=== PATIENT | female | born 1960 | race Caucasian/White ===

== ENCOUNTER 2019-04-05 10:56 | Outpatient (CLI) | payer OTHER, SELFPAY ==
--- NOTE | 2019-04-05 11:02 | MR_ITS ---
WS: [id number] MRI LUMBAR SPINE NONCONTRAST TECHNIQUE: Sagittal T1, T2 and STIR imaging. Axial T1 and T2 imaging. CLINICAL INFORMATION: RADICULAR PAIN;DEGENERATION LUMBAR/LUMBOSACRAL INTERVERTEBRA COMPARISON: MRI FINDINGS: Mild lumbar curve. No acute compression. Prior postoperative changes L5-S1. L1-L2: Normal. L2-L3: Mild annular bulging. Mild facet arthropathy. Spinal canal and foramen are patent. L3-L4: Mild annular bulging. Slight narrowing of the left subarticular recess. Mild facet arthropathy . Spinal canal is patent. L4-L5: Mild annular bulging eccentric to the left with slight impingement on the left subarticular re cess and traversing left L5 nerve root. Mild left proximal foraminal narrowing. Right foramen is martínez nt. Moderate facet arthropathy. L5-S1: Remote appearing right hemilaminectomy defect. Right pericentral subarticular disc protrusion impinges the traversing right S1 nerve root in the subarticular recess. Recommend correlation for rig ht S1 nerve root symptoms. Mild right proximal foraminal narrowing. Left foramen is patent. Previousl y described disc extrusion seen in 2012 has been resected. MR/MR lumbar spine wo con* [id number] IMPRESSION: 1. Right subarticular disc protrusion L5-S1 impinges the right S1 nerve root a nd subarticular recess. Recommend correlation for S1 nerve root symptoms. Mild right L5-S1 foraminal narrowing. This appears progressed since 2011. 2. Shallow left foraminal protrusion L4-5 impinges the left subarticular reces s and traversing left L5 nerve root. Mild left L4-5 foraminal narrowing. This i s new since 2011. 3. Moderate facet arthropathy L3-L4 and L4-L5.
== END 2019-04-05 10:57 | disposition home or self-care (01) ==
LOC: RADSHAW 11:00
PROVIDERS: Family Provider Family Medicine; Visit Provider Family Medicine
DX: M47.897 Other spondylosis, lumbosacral region (principal); M51.27 Other intervertebral disc displacement, lumbosacral region; M51.26 Other intervertebral disc displacement, lumbar region
CPT/HCPCS: 72148

== ENCOUNTER 2019-06-07 07:49 | Outpatient (CLI) | payer OTHER, SELFPAY ==
--- NOTE | 2019-06-07 08:04 | MR_ITS ---
WS: [id number] MRI LUMBAR SPINE WITH AND WITHOUT CONTRAST HISTORY: Low back pain. S/P lumbar decompression COMPARISON: 04/05/2019 TECHNIQUE: Sagittal and axial multisequence imaging is submitted. Sagittal and axial T1 fat sat seque nces post-ProHance 13 cc IV. Normal posterior lumbar alignment with slight curvature to the LEFT. No marrow edema or fracture. Mild disc desiccation and narrowing at L5-S1. No cord compression. Conus terminates normally at L1-2 disc level. L1-L2: Normal. L2-L3: Minimal annular disc bulging and facet arthropathy. No stenosis or change. L3-L4: Minimal annular disc bulging and facet arthropathy with no change. L4-L5: Mild eccentric annular disc bulging. Disc extends into the LEFT subarticular recess and LEFT f oramen. Focal broad-based protrusion with encroachment and displacement of the LEFT L5 nerve root at the subarticular recess. Similar to the prior examination. Mild narrowing of the LEFT foramen. There is fluid in the facet joints bilaterally. L5-S1: Again noted is the RIGHT subarticular recess disc protrusion displacing and abutting the RIGHT S1 nerve root. Disc protrusion extends into the proximal RIGHT foramen with an annular fissure. The disc protrusion has decreased in size. There is some peripheral enhancement but there is also a porti on that is nonenhancing consistent with with recurrent disc protrusion. Significantly smaller as comp ared to 04/05/2019. Prior RIGHT L5 hemilaminectomy defect. There is increased enhancement surrounding the facet facet lily nts on the RIGHT at L4-5 and L5-S1. MR/MR lumbar spine wo/w con [id number] IMPRESSION: 1. Recently described RIGHT subarticular disc protrusion L5-S1 has significant ly decreased in size but there is still encroachment and displacement of the RI GHT S1 nerve root. Soft tissue in the RIGHT subarticular recess and distended w ith postoperative fibrosis and recurrent disc protrusion. 2. Acute inflammatory facet joint arthropathy on the RIGHT at L4-5 and L5-S1. 3. Broad-based disc protrusion at L4-5 encroaching and displacing the LEFT L5 nerve root and narrowing the LEFT foramen. No interval change.
[2019-06-07 08:58] LABS: Blood Urea Nitrogen 18 mg/dL (6-20); Glomerular Filtration Rate 64.5 mL/min (90-130)
== END 2019-06-07 07:50 | disposition home or self-care (01) ==
LOC: RADWPI 07:54
PROVIDERS: Family Provider Family Medicine; PCP Family Medicine; Visit Provider Licensed Practical Nurse
DX: M51.17 Intervertebral disc disorders with radiculopathy, lumbosacral region (principal); M51.26 Other intervertebral disc displacement, lumbar region
CPT/HCPCS: 72158; 82565; 84520; A9579

== ENCOUNTER 2019-07-09 11:08 | Outpatient (CLI) | payer OTHER, SELFPAY ==
--- NOTE | 2019-07-09 11:15 | XR_ITS ---
WS: [id number] LUMBAR SPINE FLEXION AND EXTENSION TECHNIQUE: 3 views of the lumbar spine: Lateral neutral, flexion, and extension views. CLINICAL INFORMATION: Low back pain. COMPARISON: None. FINDINGS: Mild lumbar curve. No acute compression fractures. Normal alignment on the neutral view. No instabili ty on flexion-extension. Aortic calcification. Mild to moderate facet arthropathy L5-S1. XR/XR lumbar spine f/e only [id number] IMPRESSION: No instability on flexion-extension.
== END 2019-07-09 11:09 | disposition home or self-care (01) ==
LOC: RADWPI 11:11
PROVIDERS: Family Provider Family Medicine; PCP Family Medicine; Visit Provider Licensed Practical Nurse
DX: M54.5 Low back pain (principal)
CPT/HCPCS: 72120

== ENCOUNTER → 2019-08-30 08:33 | Outpatient (BNVA) | payer OTHER, SELFPAY | PROVIDERS: Family Provider Family Medicine; PCP Family Medicine; Referring Provider Specialist; Visit Provider Anesthesiology Pain Medicine | DX: G89.29 Other chronic pain (principal); M51.16 Intervertebral disc disorders with radiculopathy, lumbar region; M51.17 Intervertebral disc disorders with radiculopathy, lumbosacral region; M54.9 Dorsalgia, unspecified; Z98.890 Other specified postprocedural states; Z79.891 Long term (current) use of opiate analgesic | CPT/HCPCS: 99204; 99205 ==

== ENCOUNTER → 2019-09-17 10:30 | Outpatient (BNVA) | payer OTHER, SELFPAY | PROVIDERS: Family Provider Family Medicine; PCP Family Medicine; Visit Provider Nurse Practitioner Family | DX: U07.1 COVID-19 (principal) | CPT/HCPCS: 87635 ==

== ENCOUNTER → 2019-10-03 13:37 | Outpatient (BNVA) | payer OTHER, SELFPAY | PROVIDERS: Family Provider Family Medicine; PCP Family Medicine; Visit Provider Anesthesiology Pain Medicine | DX: M51.17 Intervertebral disc disorders with radiculopathy, lumbosacral region (principal); M51.16 Intervertebral disc disorders with radiculopathy, lumbar region; M54.9 Dorsalgia, unspecified; Z98.890 Other specified postprocedural states | CPT/HCPCS: 64483; 64484; J1040; J3490 ==

== ENCOUNTER → 2020-01-20 10:16 | Outpatient (BNVA) | payer OTHER, SELFPAY | PROVIDERS: PCP Family Medicine; Visit Provider Internal Medicine Cardiovascular Disease | DX: Z11.59 Encounter for screening for other viral diseases (principal) | CPT/HCPCS: 87635 ==

== ENCOUNTER 2020-01-24 07:53 | Outpatient (CLI) | payer OTHER, SELFPAY ==
[2020-01-24 08:09] VITALS: BMI 25.2
--- NOTE | 2020-01-24 08:09 | ECG_ITS ---
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 The perfusion scan will be documented separately. DATA: Baseline heart rate was 59 beats per minute. Baseline blood pressure was 151/91 millimeters of mercury. Target heart rate was 162. Maximum heart rate achieved was 100. which was 61 % of the predicted target heart rate. Maximum blood pressure was 151/91 millimeters of mercury. The reason for ending the test was completion of the protocol. The patient did not experience any symptoms. ELECTROCARDIOGRAM: BASELINE: Sinus rhythm. Normal axis. Otherwise, no ST-T changes suggestive of ischemia noted. No arrhythmia noted. After Lexiscan injection, no ST-T changes suggestive of ischemic noted. No arrhythmia noted. 1. EKG not suggestive of ischemia 2. Lexiscan injection unremarkable. 3. Perfusion scan will be documented separately. Electronically Signed On 01-25-2020 18:14:50 CDT by JJ KILLIAN [email or web address]/store/[id number]
--- NOTE | 2020-01-24 08:10 | NMCV_ITS ---
NM lesli perf SPECT r/s* [id number] Deepa Anaya Age: 59 Gender: F : 1960 Exam Date: 01/24/2020 09:41 Ordering Phys: Jj Killian MD ([email or web address]) Technologist: KELLIE Rock Exam Location: [facility] Indications: SHORTNESS OF BREATH STRESS TEST [facility] IMAGE PROTOCOL Rest/Stress 1 Lexiscan Day Radiopharmaceutical Dose (mCi) Administration Site Administered by Rest: Tc-99m 10.7 IV KELLIE Yung Sestamibi Stress:Tc-99m 32.4 IV KELLIE Yung Sestamibi Rest: 24-Jan-2020 60 Discovery 630 Stress: 24-Jan-2020 30 Discovery 630 0.4mg Lexiscan. Images obtained in supine and prone position. SPECT RESULTS Technical Quality: Excellent Raw Data Analysis: Normal Image Corrections: No attenuation or motion correction applied Summed Stress Score: 0 Summed Rest Score: 5 Summed Difference Score: 0 PERFUSION FINDINGS Medium-sized area of patchy decreased tracer uptake noted in mid to distal inferior mid anterior and septal wall on rest images which improved significantly over stress images suggestive of artifact. FUNCTIONAL RESULTS (calculated via Gated SPECT) Stress Image LV EF (%): 71 Stress EDV (mL):68 TID: 1.06 Stress ESV (mL):20 Rest Image LV EF (%): 71 FUNCTIONAL FINDINGS: There is normal left ventricular systolic function. IMPRESSIONS This study is negative for ischemia and low probability for obstructive coronary artery disease. EKG segment will be documented separately. Jj Killian MD (Electronically Signed) Final Date: 24 January 2020 16:28 S
--- NOTE | 2020-01-24 09:30 | USCV_ITS ---
Deepa Anaya Age: 59 Gender: F : 1960 Exam Date: 01/24/2020 08:17 Ordering Phys: Jj Killian MD ([email or web address]) Technologist: Yessenia Kidd Exam [place] [facility] Indication: SOB BP: 120 / 60 HR: 63 Rhythm: Sinus Technical Quality: Adequate MEASUREMENTS (Male / Female) Normal Values 2D ECHO LV Diastolic Diameter PLAX 4.2 cm 4.2 - 5.9 / 3.9 - 5.3 cm LV Systolic Diameter PLAX 2.9 cm LV Chamber Size 3.6 cm IVS Diastolic Thickness 0.9 cm 0.6 - 1.0 / 0.6 - 0.9 cm IVS Systolic Thickness 1.0 cm LVPW Diastolic Thickness 0.8 cm 0.6 - 1.0 / 0.6 - 0.9 cm LVPW Systolic Thickness 1.1 cm RV Chamber Size 2.6 cm LVOT Diameter 2.1 cm LV Ejection Fraction 2D Teich 58.4 % LV Ejection Fraction MOD 2C 66.5 % LV Ejection Fraction 2C AL 67.2 % LA Diameter 2.0 cm LA Width 2.4 cm LA Height 2.6 cm RA Width 2.5 cm RA Height 2.6 cm Aorta at Sinotubular Diameter 2.7 cm M-MODE LV Diastolic Diameter MM 4.0 cm 4.2 - 5.9 / 3.9 - 5.3 cm LV Systolic Diameter MM 3.1 cm LV Ejection Fraction MM Teich 47.8 % IVS Diastolic Thickness MM 0.8 cm 0.6 - 1.0 / 0.6 - 0.9 cm IVS Systolic Thickness MM 1.1 cm LVPW Diastolic Thickness MM 1.0 cm 0.6 - 1.0 / 0.6 - 0.9 cm LVPW Systolic Thickness MM 1.4 cm RV Diastolic Diameter MM 0.8 cm MV E Point Septal Separation 0.8 cm DOPPLER AV Peak Velocity 108.0 cm/s LVOT Peak Velocity 77.0 cm/s AV Area Cont Eq vti 2.0 cm squared AV Area Cont Eq pk 2.4 cm squared MV Area PHT 3.6 cm squared Mitral E to A Ratio 1.3 MV E' Velocity 38.0 cm/s Mitral E to MV E' Ratio 5.6 Mitral E to LV E' Lateral Ratio 5.3 Mitral E to LV E' Septal Ratio 6.0 TR Peak Velocity 208.6 cm/s TR Peak Gradient 17.4 mmHg TR Mean Velocity 166.2 cm/s TR Mean Gradient 12.0 mmHg TR Velocity Time Integral 66.3 cm TV Peak E Velocity 54.0 cm/s Right Atrial Pressure 3.0 mmHg Pulmonary Artery Systolic Pressu 20.4 mmHg PV Peak Velocity 44.0 cm/s RV Acceleration Time 0.1 s RV Ejection Time 0.3 s RV AcT/ET 0.3 FINDINGS Left Ventricle Normal left ventricular cavity size. Normal left ventricular systolic function. No regional wall motion abnormalities. Left ventricular ejection fraction is estimated at 60 %. Grade II/IV diastolic dysfunction, moderately elevated filling pressures. Right Ventricle The right ventricle is normal in size and function. Right Atrium The right atrium is normal in size. Left Atrium The left atrium is normal in size. Mitral Valve Structurally normal mitral valve without significant stenosis or prolapse. There is no mitral regurgitation. Aortic Valve Moderate aortic valve calcification. No aortic valve stenosis. No aortic valve regurgitation. Tricuspid Valve Structurally normal tricuspid valve without significant stenosis or regurgitation. Pulmonary artery systolic pressure is normal. Pulmonic Valve Structurally normal pulmonic valve without significant stenosis. There is no pulmonic regurgitation. Pericardium Normal pericardium without effusion. Aorta Normal ascending aorta dimension. CONCLUSIONS 1-Normal left ventricular cavity size. Normal left ventricular systolic function. No regional wall motion abnormalities. Left ventricular ejection fraction is estimated at 60 %. Grade II/IV diastolic dysfunction, moderately elevated filling pressures. 2-There is no pericardial effusion. 3-No significant valve abnormalities. 4-Pulmonary artery systolic pressure is within normal limits. 5-Right atrial pressure is around 5 mm of mercury. 6-No significant change since the prior echocardiogram study of 02/20/2013. Jj Killian MD (Electronically Signed) Final Date: 24 January 2020 18:58 S
[2020-01-24] MEDS: regadenoson 0.4 Mg/5 ml Syringe IVP (11:14)
--- NOTE | 2020-01-24 11:14 | SUR.PREOP ---
Patient reports no pain or discomfort prior to the start of the procedure.
[2020-01-24 11:47] VITALS: BP 148/91; PULSE 91
== END 2020-01-24 07:54 | disposition home or self-care (01) ==
LOC: RAD 07:57 → CARD 08:05 → CDL 08:08
PROVIDERS: PCP Family Medicine; Visit Provider Internal Medicine Cardiovascular Disease
DX: R06.02 Shortness of breath (principal); R07.9 Chest pain, unspecified
CPT/HCPCS: 78452; 93017; 93306; A9500; J2785

== ENCOUNTER → 2020-06-05 08:44 | Outpatient (BNVA) | payer OTHER, SELFPAY | PROVIDERS: PCP Family Medicine; Visit Provider Internal Medicine Pulmonary Disease | DX: R06.02 Shortness of breath (principal) | CPT/HCPCS: 87635 ==

== ENCOUNTER 2020-06-10 07:46 | Outpatient (CLI) | payer OTHER, SELFPAY ==
--- NOTE | 2020-06-10 07:55 | CT_ITS ---
WS: [id number] LDCT LUNG CANCER SCREENING TECHNIQUE: Noncontrast CT of the chest with coronal and sagittal reformatted images. CLINICAL INFORMATION: HX OF TOBACCO USE COMPARISON: None. DLP: 60.92 mGy.cm DIvol: 1.[address] scans at [facility] use at least one of these dose optimization techniques: automat ed exposure control; mA and/or kV adjustment per patient size (includes targeted exams where dose is matched to clinical indication); or iterative reconstruction. FINDINGS: Moderate chronic emphysematous changes. No acute pulmonary infiltrates. Fibrosis in the lung apices. Aortic calcification. Coronary calcification. No mediastinal or hilar lymphadenopathy. No axillary ly mphadenopathy. Fibrosis in the lung bases. No suspicious pulmonary parenchymal opacities. CT/CT lung screening [id number] IMPRESSION: LUNG-RADS: 2-Benign Appearance or Behavior FOLLOW UP: 12 Month: Continue annual screening with LDCT
== END 2020-06-10 07:47 | disposition home or self-care (01) ==
LOC: CT 07:47
PROVIDERS: PCP Family Medicine; Visit Provider Internal Medicine Critical Care Medicine
DX: Z12.2 Encounter for screening for malignant neoplasm of respiratory organs (principal); Z87.891 Personal history of nicotine dependence
CPT/HCPCS: 71271

== ENCOUNTER → 2020-06-14 10:27 | Outpatient (BNVA) | payer OTHER, SELFPAY | PROVIDERS: PCP Family Medicine; Visit Provider Internal Medicine Critical Care Medicine | DX: Z01.812 Encounter for preprocedural laboratory examination (principal); Z20.828 Contact with and (suspected) exposure to other viral communicable diseases | CPT/HCPCS: 87635 ==

== ENCOUNTER 2020-06-17 07:22 | Outpatient (CLI) | payer OTHER, SELFPAY ==
--- NOTE | 2020-06-17 13:08 | PFTS_ITS ---
Date of Study:06/17/20 Date of Dictation: MECHANICS: Forced vital capacity (FVC) is normal. Forced expiratory volume in one second (FEV1) is normal. FEV1/FVC is reduced. FLOW VOLUME LOOP: Reduced flow at all lung volumes with scooping. LUNG VOLUMES: Total lung capacity (TLC) is normal. Residual volume (RV) is increased. DIFFUSING CAPACITY FOR CARBON MONOXIDE: Normal. INTERPRETATION: The prebronchodilator spirometry is consistent with mild obstruction. Lung volumes are consistent with air trapping. Gas exchange (DLCO) is normal. MTDD
== END 2020-06-17 07:23 | disposition home or self-care (01) ==
LOC: RT 07:24
PROVIDERS: PCP Family Medicine; Visit Provider Internal Medicine Critical Care Medicine
DX: J44.9 Chronic obstructive pulmonary disease, unspecified (principal)
CPT/HCPCS: 94010; 94726; 94729

== ENCOUNTER 2022-01-29 07:35 | Outpatient (CLI) | payer OTHER, SELFPAY ==
--- NOTE | 2022-01-29 07:42 | MM_ITS ---
WS: [id number] VIEWS: MLO and CC views both breasts. 3D digital tomosynthesis is also included in this exam. Comparison made with prior exam of 11/01/2006, 08/02/2008,. Findings: There was no sign of mass, architectural distortion or suspicious calcification in either breast. He terogeneously dense MM/[place] [id number] Impression: BI-RADS: 2-Benign FOLLOW-UP: 1 Year Follow-up This mammogram was also analyzed by the Computer Aided Detection System R2 Imag e Networking Specialist.
== END 2022-01-29 07:36 | disposition home or self-care (01) ==
LOC: RAD 07:36
PROVIDERS: PCP Family Medicine; Visit Provider Family Medicine
DX: Z12.31 Encounter for screening mammogram for malignant neoplasm of breast (principal)
CPT/HCPCS: 77063; 77067

== ENCOUNTER 2023-08-04 07:56 | Outpatient (CLI) | payer OTHER, SELFPAY ==
--- NOTE | 2023-08-04 | ECG_ITS ---
[facility] Test Date: 2023-08-04 Pat Name: Deepa Anaya Department: Room: Gender: Female [place] Former: Elena Arrieta : 1960 Requested By: Parth Hawk Order Number: [id number] Kiara MD: Nirav Yo M.D. Interpretive Statements NAME OF STUDY: LEXISCAN SESTAMIBI STRESS TEST INDICATION: Chest Pain, CAD, PROCEDURE: At the baseline, the EKG revealed normal sinus rhythm with a features of possible old anteroseptal [place]. The baseline heart was 72 bpm with a blood pressue of 156/88 mm of Hg Lexiscan was infused over a period of 20 seconds. A total of 0.4 milligrams of Lexiscan was infused. The stress phase was continued for a total of 5 minutes. Heart rate at the end of the stress phase was 95 bpm with a blood pressure 159/90 mm of Hg. The EKG at the peak infusion revealed no significant changes. Sestamibi was injected 20 seconds after the Lexiscan infusion. Heart rate at the end of the recovery phase was 73 bpm with a blood pressure of 151/86 mm of Hg. CONCLUSION: 1. No significant EKG changes with the LexiScan infusion 2. No LexiScan induced chest pain or cardiac arrhythmia 3. Normal blood pressure and heart rate response 4. Sestamibi/sestamibi perfusion scan pending; see separate report. Electronically Signed On 08-06-2023 18:24:46 CDT by Nirav Yo M.D. [email or web address].[email or web address]/store/[id number]
[2023-08-04 08:24] VITALS: BMI 27.4
--- NOTE | 2023-08-04 08:55 | NMCV_ITS ---
NM lesli perf SPECT r/s* [id number] Deepa Anaya Age: 63 Gender: F : 1960 Exam Date: 08/04/2023 08:54 Ordering Phys: Parth Hawk MD ([email or web address]) Technologist: KELLIE Rock Exam Location: [facility] Indications: CORONARY ANGIOPLASTY STATUS STRESS TEST Please see separate stress test report in [facility] for full findings IMAGE PROTOCOL Rest/Stress 1 Radiopharmaceutical Dose (mCi) Administration Site Administered by Rest: Tc-99m 10.8 IV KELLIE Yung Sestamibi Stress:Tc-99m 32.5 IV KELLIE Yung Sestamibi Rest: 04-Aug-2023 60 Discovery 630 Stress: 04-Aug-2023 30 Discovery 630 Images obtained in supine and prone position. Images obtained in supine and prone position. SPECT RESULTS Technical Quality: Excellent Raw Data Analysis: Normal Image Corrections: No attenuation or motion correction applied Summed Stress Score: 3 Summed Rest Score: 1 Summed Difference Score: 2 PERFUSION FINDINGS Small area of minimal to moderately decreased tracer uptake in the mid and apical inferior wall region. Significant reversibility was noted with the supine imaging. However with the prone imaging, no severe reversibility was noted. FUNCTIONAL RESULTS (calculated via Gated SPECT) Stress Image LV EF (%): 69 Stress EDV (mL):64 TID: 1.05 Stress ESV (mL):20 FUNCTIONAL FINDINGS: Segmental wall motion analysis revealing no gross wall motion abnormalities IMPRESSIONS 1. Myocardial perfusion imaging revealing small area of minimal to moderately decreased tracer uptake in the mid and apical inferior wall region with subtle area reversibility suggesting myocardial scarring with ischemia. However in view of the inconsistency with the prone imaging, the reliability of this finding is questionable. 2. Normal LV ejection fraction of 69%. 3. LV wall motion analysis revealing no gross wall motion abnormalities. 4. Normal LV volume Comparison with the previous study is difficult because of the attenuation artifacts Dr Nirav Yo MD FAC (Electronically Signed) Final Date: 04 Aug 2023 12:47 S
[2023-08-04] MEDS: regadenoson 0.4 Mg/5 ml Syringe 0.400000000000000022 MG IVP (09:41)
[2023-08-04] MEDS: aminophylline 25 mg/mL SDV 10 mL IVP (09:56)
[2023-08-04 09:59] VITALS: BP 151/86; PULSE 73
== END 2023-08-04 07:57 | disposition home or self-care (01) ==
PROVIDERS: PCP Family Medicine; Visit Provider Internal Medicine Cardiovascular Disease
DX: Z95.820 Peripheral vascular angioplasty status with implants and grafts (principal)
CPT/HCPCS: 36415; 78452; 93017; 96374; 96375; A9500; J0280; J2785

== ENCOUNTER 2024-02-16 15:44 | Outpatient (CLI) | payer OTHER, SELFPAY ==
--- NOTE | 2024-02-16 15:47 | MR_ITS ---
WS: [id number] MRI BRAIN WITH HIGH-RESOLUTION IMAGING THROUGH THE INTERNAL AUDITORY CANALS WITHOUT AND WITH CONTRAST HISTORY: SENSORINEURAL HEARING LOSS COMPARISON: None available. TECHNIQUE: Multiplanar, multisequence imaging is performed through the brain. Additional 3 mm imaging performed in multiple planes through the internal auditory canal. Postcontrast imaging with 50 ml's of MultiHance. Normal diffusion imaging. There are a few scattered T2 and FLAIR signal hyperintensity scattered thro ughout the brain. On the FLAIR sequence there is smooth diffuse increased signal within the dura. The enhancement extends to involve the dura around the internal auditory canals. Ventricles and extra-axial spaces are normal. Mild inferior displacement of cerebellar tonsils. Clivus and pituitary gland are normal. Internal and external auditory canals: No discrete mass. Enhancement is noted within the dura surroun ding the cranial nerves. Paranasal sinuses: Normal. Mastoid air cells: Normal. Calvarium and scalp: Normal. Visualized [place] and dural venous sinuses demonstrate no abnormality. MR/MR iac's wo/w con* [id number] IMPRESSION: 1. Diffuse thickening and enhancement of the dura covering the brain. There is no nodularity but this is a diffuse mild dural thickening with enhancement. En hancement extends into the dura surrounding the internal auditory canals and th e 7th and 8th cranial nerve complex which may lead to hearing loss. Etiology is unknown. Differentials to consider and need to be further evaluated include in tracranial hypotension, meningitis, metastatic disease, lymphoma or chronic inf lammatory disease. 2. No acute infarct. 3. Mild small vessel ischemic disease.
[2024-02-16] MEDS: gadobenate dimeglumine 20 mL vial 15 ML IV (16:34)
== END 2024-02-16 15:45 | disposition home or self-care (01) ==
LOC: RAD 15:44
PROVIDERS: PCP Family Medicine; Visit Provider Specialist
DX: G96.198 Other disorders of meninges, not elsewhere classified (principal); H90.3 Sensorineural hearing loss, bilateral
CPT/HCPCS: 70553

== ENCOUNTER 2024-03-28 05:22 | Emergency (ER) | payer OTHER, SELFPAY ==
[2024-03-28] VITALS (17 sets, daily range): BP systolic 92–142; BP diastolic 54–82; PULSE 73–95; RESP 14–21; TEMP 36.6; O2SAT 90–95; BMI 27.4
--- NOTE | 2024-03-28 05:29 | XRR_ITS ---
PROCEDURE INFORMATION: Exam: XR Chest Exam date and time: 03/28/2024 5:30 AM Age: 63 years old Clinical indication: Pain; Chest pressure; Additional info: Chest pain TECHNIQUE: Imaging protocol: Radiologic exam of the chest. Views: 1 view. COMPARISON: CT lung screening [id number] 06/10/2020 8:18 AM FINDINGS: Lungs: Unremarkable. No consolidation. Pleural spaces: Unremarkable. No pleural effusion. No pneumothorax. Heart/Mediastinum: Unremarkable. No cardiomegaly. Bones/joints: Unremarkable. XR/XR chest 1V portable [id number] IMPRESSION: No acute findings.
--- NOTE | 2024-03-28 05:29 | ECG_ITS ---
[facility] Test Date: 2024-03-28 Pat Name: Deepa Anaya Department: Room: Gender: Female [place]: : 1960 Requested By: [place] Order Number: [id number] Kiara MD: Lito Villarreal M.D. Measurements Intervals [place] Rate: 93 P: 71 [place]: 147 QRS: 66 QRSD: 79 T: 52 QT: 321 QTc: 400 Interpretive Statements SINUS RHYTHM No previous ECG available for comparison Electronically Signed On 03-29-2024 12:31:09 EVENT PLANNER by Lito Villarreal M.D. [email or web address]/store/[id number]
--- NOTE | 2024-03-28 05:37 | ED_ITS ---
Documented by User: Godwinnatalia HillsDO 03/28/24 05:42 HPI - Chest Pain 2 General: Chief Complaint: Chest Pain Stated Complaint: Chest Pains Time Seen by Provider: 03/28/24 05:28 History of Present Illness: Patient presents to the ER with left-sided chest pain sharp stabbing nature. This started about 8 PM last night. It has come and gone. Patient has taken 3 sublingual nitro throughout the night that did relieve the pain and allow her to sleep. Patient also took a Percocet and 181 mg aspirin. Patient does have 2 stents with the last one being placed about 7 to [address] Flores, she thinks her last stress test was about 2 years ago and it was normal. Patient denies any shortness of breath or diaphoresis but does admit to some nausea. Related Data Home Medications Medication Instructions Recorded Confirmed alprazolam 0.5 mg tablet (Xanax) 0.5 mg PO TID PRN Anxiety 04/10/19 03/28/24 aspirin 81 mg tablet,delayed 81 mg PO DAILY 04/10/19 03/28/24 release (Adult Low Dose Aspirin) temazepam 30 mg capsule 30 mg PO BEDTIME PRN Sleep 04/10/19 03/28/24 gabapentin 300 mg capsule 300 mg PO DAILY 05/19/21 03/28/24 albuterol sulfate 90 mcg/actuation 2 puff inhalation Q4H PRN 03/28/24 03/28/24 aerosol inhaler Shortness Of Breath folic acid 1 mg tablet 1 mg PO DAILY 03/28/24 03/28/24 methotrexate sodium 2.5 mg tablet 2.5 mg PO Q7D 03/28/24 03/28/24 Previous Rx's Medication Instructions Recorded oxycodone-acetaminophen 5 mg-325 1 tab PO BID PRN chronic pain 23 10/02/20 mg tablet days #46 tabs nitroglycerin 0.4 mg sublingual 0.4 mg sublingual DIRECTED PRN 07/15/23 tablet (Nitrostat) chest pain #25 tabs atenolol 25 mg tablet 25 mg PO DAILY #90 tabs 01/20/24 atorvastatin 40 mg tablet (Lipitor) 40 mg PO DAILY #90 tabs 01/20/24 isosorbide mononitrate 60 mg 90 mg (1.5 x 60 mg) PO DIRECTED 01/20/24 tablet,extended release 24 hr #135 tabs Allergies Allergy/AdvReac Type Severity Reaction Status Date / Time hydrocodone [From [place]] Allergy Severe ADR-Vomitin Verified 03/28/24 05:31 g Review of Systems 2 General: Reports: 10 or more systems reviewed and unremarkable except in HPI and below PFSH ED 2 PFSH: Medical History (Updated 03/28/24 @ 11:25 by Azeem Martínez, DO) Prinzmetal angina Chest pain COPD (chronic obstructive pulmonary disease) CAD (coronary artery disease) HTN (hypertension) Hyperlipidemia Angina pectoris Mixed hyperlipidemia Displacement of lumbar disc with radiculopathy Intervertebral disc disorder with radiculopathy of lumbosacral region Surgical History History of ankle surgery S/P angioplasty with stent History of knee surgery right History of back surgery (~12/2011) 01/10/2012 Dr Luis El: Right L5-S1 hemilaminotomy/discectomy/foraminotomy. Family History Mother CAD (coronary artery disease) Bleeding disorder Pulmonary embolism Father CAD (coronary artery disease) Brother Pulmonary embolism Bleeding disorder Sister Bleeding disorder Pulmonary embolism Social History Smoking and tobacco/nicotine status: former use of tobacco/nicotine Quit status (tobacco/nicotine): has quit using Year quit tobacco: 2019 Former quit date comment: 1 PPD x 40 Years Alcohol intake: never Substance/Drug Use: never Lives independently: Yes Household members: spouse and family Marital status: Current occupational status: employed Current occupation: [employer] Do you think of yourself as: Straight/Heterosexual Current gender identity: Female Physical Exam 2 Const: COMMON NORMALS: no acute distress, average body habitus, patient oriented x3, no limitations, healthy appearing, alert and well nourished HENMT: COMMON NORMALS: normocephalic, atraumatic, hearing grossly normal bilaterally, external ears normal, Normal external nose present and moist oral mucous membranes HEAD & SCALP: normocephalic and atraumatic NOSE: Normal external nose present EXTERNAL EAR: Yes external ears normal Neck/C-Spine: COMMON NORMALS: no JVD Chest: COMMONS NORMALS: normal inspection of the chest; negative for normal palpation of entire chest wall (Mild tenderness left palpation of the chest,) Resp: COMMON NORMALS: normal respiratory effort, No retractions, No use of accessory muscles and clear to auscultation bilaterally AUSCULTATION: clear to auscultation bilaterally Cardio: COMMON NORMALS: no JVD, regular rate, S1 normal heart sound present, S2 normal heart sound present, No gallops present (Cardio), No clicks present (Cardio), No murmurs present (Cardio) and No rub (Cardio) RATE: regular rate HEART SOUNDS: S1 normal heart sound present and S2 normal heart sound present GI: COMMON NORMALS: Normal to inspection, nondistended, normoactive bowel sounds present, Soft to palpation, non-tender, No hepatosplenomegaly present and no masses PALPATION: Yes Soft to palpation and Yes No hepatosplenomegaly present Neuro: COMMON NORMALS: patient oriented x3 SENSORIUM/ORIENTATION: Yes alert Course 2 Vital Signs: Vital signs: Vital Signs Temperature 97.9 F 03/28/24 05:24 Pulse Rate 73 03/28/24 11:44 Respiratory Rate 18 03/28/24 11:44 Blood Pressure 128/82 03/28/24 11:44 Pulse Oximetry 95 03/28/24 11:44 Oxygen Delivery Me thod Room Air 03/28/24 07:00 MDM - Chest Pain Medical Records I reviewed the patient's medical records. Lab Data I reviewed the patient's lab results. 03/28/24 05:41 03/28/24 05:41 Radiology Impressions Chest X-Ray 03/28/24 05:29 IMPRESSION: No acute findings. Laboratory Results WBC 10.19 10^3/uL (3.29-11.43) 03/28/24 05:41 RBC 4.09 10^6/uL (3.85-5.65) 03/28/24 05:41 Hgb 12.20 g/dL (11.27-16.99) 03/28/24 05:41 Hct 37.5 % (36-47) 03/28/24 05:41 MCV 91.7 fl (85-98) 03/28/24 05:41 MCH 29.8 pg (27-33) 03/28/24 05:41 MCHC 32.5 g/dL (30-55) 03/28/24 05:41 RDW 13.1 % (12.1-15.1) 03/28/24 05:41 Plt Count 150 10^3/cmm (157-399) L 03/28/24 05:41 MPV 10.2 fL (7.4-10.4) 03/28/24 05:41 Neut % (Auto) 81.4 % 03/28/24 05:41 Lymph % (Auto) 10.1 % 03/28/24 05:41 [place] % (Auto) 5.8 % 03/28/24 05:41 Eos % (Auto) 2.1 % 03/28/24 05:41 Baso % (Auto) 0.2 % 03/28/24 05:41 Neut # (Auto) 8.30 10^3/uL (1.8-7.7) H 03/28/24 05:41 Lymph # (Auto) 1.0 10^3/uL (0.8-4.8) 03/28/24 05:41 [place] # (Auto) 0.6 10^3/uL (0.2-0.9) 03/28/24 05:41 Eos # (Auto) 0.2 10^3/uL (0.0-0.8) 03/28/24 05:41 Baso # (Auto) 0.0 10^3/uL (0.0-0.1) 03/28/24 05:41 Nucleated RBC % (auto) 0 % 03/28/24 05:41 Nucleated RBCs # 0.0 /100WBC 03/28/24 05:41 PT 12.10 SECONDS (12.1-14.9) 03/28/24 05:41 INR 0.87 (0.8-1.2) 03/28/24 05:41 Sodium 134 mmol/L (136-145) L 03/28/24 05:41 Potassium 3.9 mmol/L (3.5-5.1) 03/28/24 05:41 Chloride 100 mmol/L (98-107) 03/28/24 05:41 Carbon Dioxide 20 mmol/L (22-29) L 03/28/24 05:41 Anion Gap 17.9 (5-19) 03/28/24 05:41 BUN 15 mg/dL (8-23) 03/28/24 05:41 Creatinine 0.7 mg/dL (0.5-0.9) 03/28/24 05:41 GFR Calculation 84.8 mL/min (90-130) L 03/28/24 05:41 Glucose 142 mg/dL (65-115) H 03/28/24 05:41 Calculated Osmolality 281 mOsm/kg (285-295) L 03/28/24 05:41 Calcium 8.8 mg/dL (8.5-10.5) 03/28/24 05:41 Total Bilirubin 0.5 mg/dL (0.15-1.2) 03/28/24 05:41 AST 23 U/L (0-32) 03/28/24 05:41 ALT 32 U/L (0-33) 03/28/24 05:41 Alkaline Phosphatase 76 U/L (35-105) 03/28/24 05:41 Troponin T Baseline < 6 ng/L (0-10) 03/28/24 05:41 Troponin T 120 Minute 6.00 ng/L (0-10) 03/28/24 08:04 Delta Troponin T 0.59141 ABS# (0-10) 03/28/24 08:04 Total Protein 6.8 g/dL (6.6-8.7) 03/28/24 05:41 Albumin 3.6 g/dL (3.5-5.2) 03/28/24 05:41 Globulin 3.2 g/dL (1.3-4.6) 03/28/24 05:41 All radiology interpretation(s) finalized by discharge Discharge Plan Discharge Patient Disposition: Home Clinical Impression: Chest pain CAD (coronary artery disease) Qualifiers: Coronary Disease-Associated Artery/Lesion type: [place] artery [place] vs. transplanted heart: [place] heart Associated angina: angina presence unspecified Qualified Code(s): I25.10 - Atherosclerotic heart disease of [place] coronary artery without angina pectoris Condition: Stable Prescriptions: No Action oxycodone-acetaminophen 5-325 mg tablet 1 tab PO BID PRN (Reason: chronic pain ) 23 Days Qty: 46 0RF aspirin [Adult Low Dose Aspirin] 81 mg tablet,delayed release (DR/EC) 81 mg PO DAILY alprazolam [Xanax] 0.5 mg tablet 0.5 mg PO TID PRN (Reason: Anxiety) temazepam 30 mg capsule 30 mg PO BEDTIME PRN (Reason: Sleep) gabapentin 300 mg capsule 300 mg PO DAILY nitroglycerin [Nitrostat] 0.4 mg tablet, sublingual 0.4 mg SUBLINGUAL DIRECTED PRN (Reason: chest pain) Qty: 25 3RF atenolol 25 mg tablet 25 mg PO DAILY Qty: 90 3RF atorvastatin [Lipitor] 40 mg tablet 40 mg PO DAILY Qty: 90 3RF isosorbide mononitrate 60 mg tablet extended release 24 hr 90 mg PO DIRECTED Qty: 135 3RF Rx Instructions: Take 30mg (0.5 tab) in AM and 60mg (1 tab) in PM methotrexate sodium 2.5 mg tablet 2.5 mg PO Q7D folic acid 1 mg tablet 1 mg PO DAILY albuterol sulfate 90 mcg/actuation HFA aerosol inhaler 2 puff INHALATION Q4H PRN (Reason: Shortness Of Breath) Discharge Orders: Discharge ED (Routine); Ordered 03/28/24 Ordered By: Azeem Martínez Referrals: Johnnie Allen MD [Primary Care Provider] - Discharge Diet: Usual diet Discharge Activity: Limit activity as instructed Patient Instructions: Opioid Safety, Pain Management Activity Restrictions/Additional Instructions: You were seen in the emergency room for complaints of chest pain. We reviewed your cardiac enzymes and EKG there is no acute changes also reviewed the findings with Dr. Villarreal who is on-call for cardiology. He recommends we discharge you home and follow-up with an outpatient stress test and then be seen in the cardiology clinic. He reviewed the stress test done in July 2023 and felt that the repeat stress test would be helpful. If you have recurrence of chest pain use sublingual nitro and return to the emergency room Sign Out Sign Out Data: Patient Sign Out occurred on 03/28/24 at 06:18. Patient's care was discussed, and care was transferred from Godwin Hills DO to Azeem Martínez DO. Coding Level of Care Code ED Vice Provost for Chg Fwd Documented by User: Azeem Martínez DO 03/28/24 13:26 HPI - Chest Pain 2 General: Chief Complaint: Chest Pain Stated Complaint: Chest Pains Time Seen by Provider: 03/28/24 05:28 Related Data Home Medications Medication Instructions Recorded Confirmed alprazolam 0.5 mg tablet (Xanax) 0.5 mg PO TID PRN Anxiety 04/10/19 03/28/24 aspirin 81 mg tablet,delayed 81 mg PO DAILY 04/10/19 03/28/24 release (Adult Low Dose Aspirin) temazepam 30 mg capsule 30 mg PO BEDTIME PRN Sleep 04/10/19 03/28/24 gabapentin 300 mg capsule 300 mg PO DAILY 05/19/21 03/28/24 albuterol sulfate 90 mcg/actuation 2 puff inhalation Q4H PRN 03/28/24 03/28/24 aerosol inhaler Shortness Of Breath folic acid 1 mg tablet 1 mg PO DAILY 03/28/24 03/28/24 methotrexate sodium 2.5 mg tablet 2.5 mg PO Q7D 03/28/24 03/28/24 Previous Rx's Medication Instructions Recorded oxycodone-acetaminophen 5 mg-325 1 tab PO BID PRN chronic pain 23 10/02/ mg tablet days #46 tabs nitroglycerin 0.4 mg sublingual 0.4 mg sublingual DIRECTED PRN 07/15/23 tablet (Nitrostat) chest pain #25 tabs atenolol 25 mg tablet 25 mg PO DAILY #90 tabs 01/20/24 atorvastatin 40 mg tablet (Lipitor) 40 mg PO DAILY #90 tabs 01/20/24 isosorbide mononitrate 60 mg 90 mg (1.5 x 60 mg) PO DIRECTED 01/20/24 tablet,extended release 24 hr #135 tabs Allergies Allergy/AdvReac Type Severity Reaction Status Date / Time hydrocodone [From [place]] Allergy Severe ADR-Vomitin Verified 03/28/24 05:31 g PFSH ED 2 PFSH: Medical History (Updated 03/28/24 @ 11:25 by Azeem Martínez DO) Prinzmetal angina Chest pain COPD (chronic obstructive pulmonary disease) CAD (coronary artery disease) HTN (hypertension) Hyperlipidemia Angina pectoris Mixed hyperlipidemia Displacement of lumbar disc with radiculopathy Intervertebral disc disorder with radiculopathy of lumbosacral region Surgical History History of ankle surgery S/P angioplasty with stent History of knee surgery right History of back surgery (~12/2011) 01/10/2012 Dr Luis El: Right L5-S1 hemilaminotomy/discectomy/foraminotomy. Family History Mother CAD (coronary artery disease) Bleeding disorder Pulmonary embolism Father CAD (coronary artery disease) Brother Pulmonary embolism Bleeding disorder Sister Bleeding disorder Pulmonary embolism Social History Smoking and tobacco/nicotine status: former use of tobacco/nicotine Quit status (tobacco/nicotine): has quit using Year quit tobacco: 2019 Former quit date comment: 1 PPD x 40 Years Alcohol intake: never Substance/Drug Use: never Lives independently: Yes Household members: spouse and family Marital status: Current occupational status: employed Current occupation: [employer] Do you think of yourself as: Straight/Heterosexual Current gender identity: Female Course 2 Vital Signs: Vital signs: Vital Signs Temperature 97.9 F 03/28/24 05:24 Pulse Rate 73 03/28/24 11:44 Respiratory Rate 18 03/28/24 11:44 Blood Pressure 128/82 03/28/24 11:44 Pulse Oximetry 95 03/28/24 11:44 Oxygen Delivery Me thod Room Air 03/28/24 07:00 MDM - Chest Pain Medical Decision Making EKG does not show any acute changes she has not a recurrence of chest pain. She did have a stress test in July 2023 that showed a questionable area of reversibility there was some concern that it may have been attenuation artifact. I reviewed with Dr. Camacho. At this point he does recommend repeating the stress test and follow-up with them in the cardiology clinic. No changes recommended medication at this time she can take sublingual nitro if she has recurrent chest pain and should return. Otherwise continue same medicines. Lab Data 03/28/24 05:41 03/28/24 05:41 Radiology Impressions Chest X-Ray 03/28/24 05:29 IMPRESSION: No acute findings. Laboratory Results WBC 10.19 10^3/uL (3.29-11.43) 03/28/24 05:41 RBC 4.09 10^6/uL (3.85-5.65) 03/28/24 05:41 Hgb 12.20 g/dL (11.27-16.99) 03/28/24 05:41 Hct 37.5 % (36-47) 03/28/24 05:41 MCV 91.7 fl (85-98) 03/28/24 05:41 MCH 29.8 pg (27-33) 03/28/24 05:41 MCHC 32.5 g/dL (30-55) 03/28/24 05:41 RDW 13.1 % (12.1-15.1) 03/28/24 05:41 Plt Count 150 10^3/cmm (157-399) L 03/28/24 05:41 MPV 10.2 fL (7.4-10.4) 03/28/24 05:41 Neut % (Auto) 81.4 % 03/28/24 05:41 Lymph % (Auto) 10.1 % 03/28/24 05:41 [place] % (Auto) 5.8 % 03/28/24 05:41 Eos % (Auto) 2.1 % 03/28/24 05:41 Baso % (Auto) 0.2 % 03/28/24 05:41 Neut # (Auto) 8.30 10^3/uL (1.8-7.7) H 03/28/24 05:41 Lymph # (Auto) 1.0 10^3/uL (0.8-4.8) 03/28/24 05:41 [place] # (Auto) 0.6 10^3/uL (0.2-0.9) 03/28/24 05:41 Eos # (Auto) 0.2 10^3/uL (0.0-0.8) 03/28/24 05:41 Baso # (Auto) 0.0 10^3/uL (0.0-0.1) 03/28/24 05:41 Nucleated RBC % (auto) 0 % 03/28/24 05:41 Nucleated RBCs # 0.0 /100WBC 03/28/24 05:41 PT 12.10 SECONDS (12.1-14.9) 03/28/24 05:41 INR 0.87 (0.8-1.2) 03/28/24 05:41 Sodium 134 mmol/L (136-145) L 03/28/24 05:41 Potassium 3.9 mmol/L (3.5-5.1) 03/28/24 05:41 Chloride 100 mmol/L (98-107) 03/28/24 05:41 Carbon Dioxide 20 mmol/L (22-29) L 03/28/24 05:41 Anion Gap 17.9 (5-19) 03/28/24 05:41 BUN 15 mg/dL (8-23) 03/28/24 05:41 Creatinine 0.7 mg/dL (0.5-0.9) 03/28/24 05:41 GFR Calculation 84.8 mL/min (90-130) L 03/28/24 05:41 Glucose 142 mg/dL (65-115) H 03/28/24 05:41 Calculated Osmolality 281 mOsm/kg (285-295) L 03/28/24 05:41 Calcium 8.8 mg/dL (8.5-10.5) 03/28/24 05:41 Total Bilirubin 0.5 mg/dL (0.15-1.2) 03/28/24 05:41 AST 23 U/L (0-32) 03/28/24 05:41 ALT 32 U/L (0-33) 03/28/24 05:41 Alkaline Phosphatase 76 U/L (35-105) 03/28/24 05:41 Troponin T Baseline < 6 ng/L (0-10) 03/28/24 05:41 Troponin T 120 Minute 6.00 ng/L (0-10) 03/28/24 08:04 Delta Troponin T 0.14330 ABS# (0-10) 03/28/24 08:04 Total Protein 6.8 g/dL (6.6-8.7) 03/28/24 05:41 Albumin 3.6 g/dL (3.5-5.2) 03/28/24 05:41 Globulin 3.2 g/dL (1.3-4.6) 03/28/24 05:41 Discharge Plan Discharge Patient Disposition: Home Clinical Impression: Chest pain CAD (coronary artery disease) Qualifiers: Coronary Disease-Associated Artery/Lesion type: [place] artery [place] vs. transplanted heart: [place] heart Associated angina: angina presence unspecified Qualified Code(s): I25.10 - Atherosclerotic heart disease of [place] coronary artery without angina pectoris Condition: Stable Prescriptions: No Action oxycodone-acetaminophen 5-325 mg tablet 1 tab PO BID PRN (Reason: chronic pain ) 23 Days Qty: 46 0RF aspirin [Adult Low Dose Aspirin] 81 mg tablet,delayed release (DR/EC) 81 mg PO DAILY alprazolam [Xanax] 0.5 mg tablet 0.5 mg PO TID PRN (Reason: Anxiety) temazepam 30 mg capsule 30 mg PO BEDTIME PRN (Reason: Sleep) gabapentin 300 mg capsule 300 mg PO DAILY nitroglycerin [Nitrostat] 0.4 mg tablet, sublingual 0.4 mg SUBLINGUAL DIRECTED PRN (Reason: chest pain) Qty: 25 3RF atenolol 25 mg tablet 25 mg PO DAILY Qty: 90 3RF atorvastatin [Lipitor] 40 mg tablet 40 mg PO DAILY Qty: 90 3RF isosorbide mononitrate 60 mg tablet extended release 24 hr 90 mg PO DIRECTED Qty: 135 3RF Rx Instructions: Take 30mg (0.5 tab) in AM and 60mg (1 tab) in PM methotrexate sodium 2.5 mg tablet 2.5 mg PO Q7D folic acid 1 mg tablet 1 mg PO DAILY albuterol sulfate 90 mcg/actuation HFA aerosol inhaler 2 puff INHALATION Q4H PRN (Reason: Shortness Of Breath) Discharge Orders: Discharge ED (Routine); Ordered 03/28/24 Ordered By: Azeem Martínez Referrals: Johnnie Allen MD [Primary Care Provider] - Discharge Diet: Usual diet Discharge Activity: Limit activity as instructed Patient Instructions: Opioid Safety, Pain Management Activity Restrictions/Additional Instructions: You were seen in the emergency room for complaints of chest pain. We reviewed your cardiac enzymes and EKG there is no acute changes also reviewed the findings with Dr. Villarreal who is on-call for cardiology. He recommends we discharge you home and follow-up with an outpatient stress test and then be seen in the cardiology clinic. He reviewed the stress test done in July 2023 and felt that the repeat stress test would be helpful. If you have recurrence of chest pain use sublingual nitro and return to the emergency room Sign Out Sign Out Data: Patient Sign Out occurred on 03/28/24 at 06:18. Patient's care was discussed, and care was transferred from Godwin Hills DO to Azeem Martínez DO. Coding Level of Care Code ED Vice Provost for [place]
[2024-03-28 05:47] LABS: Basophils % 0.2 %; Eosinophils # 0.2 10^3/uL (0.0-0.8); Eosinophils % 2.1 %; Hematocrit 37.5 % (36-47); Lymphocytes % 10.1 %; Mean Corpuscular HGB Conc 32.5 g/dL (30-55); Mean Corpuscular Hemoglobin 29.8 pg (27-33); Mean Corpuscular Volume 91.7 fl (85-98); Mean Platelet Volume 10.2 fL (7.4-10.4); Monocytes # 0.6 10^3/uL (0.2-0.9); Monocytes % 5.8 %; Neutrophils % 81.4 %; Nucleated Red Blood Cells % 0 %; Platelet Count 150 10^3/cmm (157-399); Red Blood Count 4.09 10^6/uL (3.85-5.65); Red Cell Distribution Width 13.1 % (12.1-15.1); White Blood Count 10.19 10^3/uL (3.29-11.43)
[2024-03-28] MEDS: nitroglycerin 0.4 mg sublingual Tablet SUBLINGUAL (05:50)
[2024-03-28] MEDS: aspirin 81 mg Chew Tablet 324 MG PO (05:50)
[2024-03-28] MEDS: morphine 4 mg/mL SDV 1 mL IVP (05:51)
[2024-03-28 05:58] LABS: INR 0.87 (0.8-1.2)
[2024-03-28 06:07] LABS: Alanine Aminotransferase 32 U/L (0-33); Albumin Level 3.6 g/dL (3.5-5.2); Alkaline Phosphatase 76 U/L (35-105); Aspartate Amino Transferase 23 U/L (0-32); Blood Urea Nitrogen 15 mg/dL (8-23); Calcium 8.8 mg/dL (8.5-10.5); Carbon Dioxide 20 mmol/L (22-29); Chloride 100 mmol/L (98-107); Creatinine Clr Calc Pharmacy 81.3622; Globulin 3.2 g/dL (1.3-4.6); Glomerular Filtration Rate 84.8 mL/min (90-130); Glucose 142 mg/dL (65-115); Osmolality Calculated 281 mOsm/kg (285-295); Sodium 134 mmol/L (136-145); Total Bilirubin 0.5 mg/dL (0.15-1.2); Total Protein 6.8 g/dL (6.6-8.7)
[2024-03-28 06:11] LABS: Anion Gap 17.9 (5-19); Potassium 3.9 mmol/L (3.5-5.1)
[2024-03-28 06:23] LABS: Troponin(5th) Baseline < 6 ng/L (0-10)
--- NOTE | 2024-03-28 07:29 | ECG_ITS ---
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 Measurements Intervals [place] Rate: 75 P: 66 RI: 159 QRS: 74 QRSD: 88 T: 63 QT: 364 QTc: 408 Interpretive Statements SINUS RHYTHM POSSIBLE RIGHT VENTRICULAR CONDUCTION DELAY [RSR (QR) IN V1/V2] No previous ECG available for comparison Electronically Signed On 03-29-2024 12:35:51 BANANA RIPENING ROOM SUPERVISOR by Lito Villarreal M.D. [email or web address]
[2024-03-28 08:34] LABS: Troponin 5 2HR Delta 0.00001 ABS# (0-10)
--- NOTE | 2024-03-28 11:29 | ECG_ITS ---
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 Measurements Intervals [place] Rate: 74 P: 77 UT: 169 QRS: 78 QRSD: 89 T: 66 QT: 353 QTc: 393 Interpretive Statements SINUS RHYTHM POSSIBLE RIGHT VENTRICULAR CONDUCTION DELAY [RSR (QR) IN V1/V2] Compared to ECG 03/28/2024 07:15:46 No significant changes Electronically Signed On 03-29-2024 12:35:24 DATA CENTER TECHNICIAN by Lito Villarreal M.D. [email or web address]
== END 2024-03-28 11:44 | disposition home or self-care (01) ==
PROVIDERS: Emergency Medicine; Emergency Provider Family Medicine; PCP Family Medicine
DX: R07.9 Chest pain, unspecified (principal); I25.10 Atherosclerotic heart disease of native coronary artery without angina pectoris; Z79.82 Long term (current) use of aspirin; Z87.891 Personal history of nicotine dependence; J44.9 Chronic obstructive pulmonary disease, unspecified; E78.5 Hyperlipidemia, unspecified
CPT/HCPCS: 36415; 71045; 80053; 84484; 85025; 85610; 93005; 93010; 96374; 99285; J2270

== ENCOUNTER 2025-03-11 09:32 | Outpatient (CLI) | payer OTHER, SELFPAY ==
[2025-03-11 09:36] VITALS: BMI 27.8
--- NOTE | 2025-03-11 09:37 | NMCV_ITS ---
NM lesli perf SPECT r/s* [id number] Deepa Anaya Age: 64 Gender: F : 1960 Exam Date: 03/11/2025 10:29 Ordering Phys: Jj Killian MD ([email or web address]) Technologist: KELLIE Villalta Exam Location: [facility] Indications: cp STRESS TEST [facility] IMAGE PROTOCOL Rest/Stress 1 Lexiscan Day Radiopharmaceutical Dose (mCi) Administration Site Administered by Rest: Tc-99m 10.4 IV Evelyn Andrews, JEWELRY POLISHER Sestamibi Stress:Tc-99m 32.2 IV Evelyn Ayongle, JEWELRY POLISHER Sestamibi Rest: 11-Mar-2025 60 Discovery 630 Stress: 11-Mar-2025 30 Discovery 630 0.4mg Lexiscan. Images obtained in supine and prone position. SPECT RESULTS Technical Quality: Good Raw Data Analysis: Normal Image Corrections: No attenuation or motion correction applied Summed Stress Score: 4 Summed Rest Score: 2 Summed Difference Score: 2 PERFUSION FINDINGS Small to moderate area of minimal to moderately decreased tracer uptake was noted in the mid to inferior, mid inferolateral and apical inferior regions. Minimal reversibility was noted in the apical inferior and mid inferolateral segments. However with the prone imaging, no significant reversible defects were noted. FUNCTIONAL RESULTS (calculated via Gated SPECT) Stress Image LV EF (%): 68 Stress EDV (mL):66 TID: 1.38 Stress ESV (mL):21 FUNCTIONAL FINDINGS: Segmental wall motion analysis revealing no gross wall motion abnormalities IMPRESSIONS 1. Myocardial perfusion imaging revealing a small to moderate area of slightly decreased tracer uptake involving the mid and apical inferior and mid inferolateral segments. Some reversibility was noted in the inferior and inferolateral region. This may suggest myocardial scarring with ischemia in the distribution of the RCA/circumflex artery. However because of the inconsistency with the prone imaging, the reliability is questionable 2. Normal LV ejection fraction of 68%. 3 LV wall motion analysis revealing no gross wall motion abnormalities. 4. Normal LV volume 5. The transient ischemic dilatation ratios are evaluated 1.38 may suggest endocardial ischemia. Clinical correlation is recommended Dr Nirav Yo MD [facility] (Electronically Signed) Final Date: 13 March 2025 00:20 S
--- NOTE | 2025-03-11 09:37 | ECG_ITS ---
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 The perfusion scan will be documented separately. DATA: Baseline heart rate was 58 beats per minute. Baseline blood pressure was 143/81 millimeters of mercury. Target heart rate was 157. Maximum heart rate achieved was 97. which was 61 % of the predicted target heart rate. Maximum blood pressure was 150/88 millimeters of mercury. The reason for ending the test was completion of the protocol. The patient did not experience any symptoms. ELECTROCARDIOGRAM: BASELINE: Sinus bradycardia. Normal axis. Otherwise, no ST-T changes suggestive of ischemia noted. No arrhythmia noted. EXERCISE: After Lexiscan injection, no ST-T changes suggestive of ischemic noted. No arrhythmia noted. CONCLUSION: Please note due to baseline abnormality of the EKG specificity and sensitivity of the EKG portion of LexiScan MIBI stress test will be low 1. EKG not suggestive of ischemia 2. Lexiscan injection unremarkable. 3. Perfusion scan will be documented separately. Electronically Signed On 03-11-2025 12:39:25 BACK TENDER PAPER MACHINE by JJ KILLIAN [email or web address] [email or web address]
[2025-03-11] MEDS: aminophylline 25 mg/mL SDV 20 mL IVP (11:04)
[2025-03-11 11:10] VITALS: BP 146/81; PULSE 71
== END 2025-03-11 09:33 | disposition home or self-care (01) ==
LOC: CDL 09:36
PROVIDERS: PCP Family Medicine; Visit Provider Internal Medicine Cardiovascular Disease
DX: R07.9 Chest pain, unspecified (principal); R94.39 Abnormal result of other cardiovascular function study; R06.02 Shortness of breath; R00.1 Bradycardia, unspecified
CPT/HCPCS: 36415; 78452; 93017; 96374; A9500; J0280; J2785